=== PATIENT | male | born 2000 | race Caucasian/White ===

== ENCOUNTER 2024-08-24 05:08 | Emergency (ER) | payer OTHER ==
[~2024-08-24] VITALS: Ht 182.9 cm; Wt 93.0 kg
[2024-08-24] MEDS ORDERED: Bacitracin Zinc Oint 1GRAM UD Packet TOP ONE (07:25)
== END 2024-08-24 08:35 | disposition home or self-care (01) ==
LOC: ER 05:08
DX: L55.1 Sunburn of second degree (principal); Z91.048 Other nonmedicinal substance allergy status
CPT/HCPCS: 99282